=== PATIENT | female | born 1980 | race Caucasian/White ===

== ENCOUNTER 2020-02-07 10:00 | Emergency (ER) | payer MEDICAID, SELFPAY ==
--- NOTE | 2020-02-07 10:06 | W.ED.GENAD ---
Discharge Plan Disposition Patient Disposition: HOME Condition: Stable Discharge Details Clinical Impression: Right knee sprain Primary Care Provider: Raquel,Local ED Provider: Simran Wharton Home Meds and New Rx's Prescriptions: Continued buspirone 5 mg Tablet PO BID RF: 0 prazosin 1 mg Capsule 2 mg PO QHS RF: 0 sertraline 100 mg Tablet 100 mg PO DAILY RF: 0 propranolol 80 mg Capsule,Extended Release 24hr 80 mg PO DAILY RF: 0 Discharge Instructions Instructions: Knee Sprain (ED) Additional Instructions: Rest, ice, and elevate the affected area as much as possible. You can try using a cane to help with limiting weightbearing on your right leg. Alternate tylenol and motrin as needed and directed for pain. Follow-up with your primary care doctor in 1 week. Follow-up with orthopedics for further evaluation if your symptoms do not improve or worsen over the next few weeks. Return to the emergency department with any worsening or new concerning symptoms. Referrals: Scott Yañez MD [ [facility] STAFF PHYSICIAN] - Discharge Data Discharge Physician: Simran Wharton Medical Decision Making 1015 -- 39-year-old female with a history of right ACL repair approximately 10 years ago who presents for right knee pain after twisting her knee while walking her dog yesterday. Right anterior knee edema with tenderness of the entire knee and pain with range of motion and no ligamentous laxity or evidence of cellulitis. She is neurovascularly intact. We will give a dose of ibuprofen, and refer for right knee x-ray. 1130 -- X-ray reviewed and negative for acute findings. Marco A wrap placed. Patient declined crutches. She was advised on the importance of RICE. Patient given orthopedic follow-up information if symptoms persist or worsen. Usual and customary return precautions given prior to discharge. Medical Records Medical records reviewed: Yes I reviewed the patient's medical records. Imaging Data Radiologic Study: Radiologist's impression: XR KNEE RT 3V AP,LAT,JAMES CLINICAL HISTORY: R knee twisting inj, r/o acute fx/effusion. TECHNIQUE: 2D digital imaging was performed. COMPARISON: No exams were available for comparison FINDINGS: BONES: No acute fracture is present. No bony destructive lesion is seen. Findings of a prior ACL repair are noted. JOINTS: The knee is normally aligned. No joint effusion is seen. Degenerative changes of the knee are noted. SOFT TISSUE: Normal. IMPRESSION: No acute fracture or dislocation. HPI General Mode of arrival: wheelchair. Date/Time Provider Initiated Documentation: 02/07/20 10:06. Limitations to Documentation: no limitations. Information obtained by: patient. HPI Narrative: Patient is a 39-year-old female with a history of right ACL repair 10 years ago who presents with right knee pain after twisted her knee while walking her dog yesterday. She is now complaining of pain in the right anterior and posterior knee that is worse with weightbearing. Her last dose of ibuprofen was yesterday. She states she has Essure and a Mirena and denies known . She denies any hip or ankle pain. Related Data Home Medications Medication Instructions Recorded Confirmed buspirone mg PO BID 02/07/20 prazosin 2 mg PO QHS 02/07/20 02/07/20 propranolol 80 mg PO DAILY 02/07/20 02/07/20 sertraline 100 mg PO DAILY 02/07/20 02/07/20 Allergies Allergy/AdvReac Type Severity Reaction Status Date / Time trazodone Allergy Severe seizure Unverified 02/07/20 10:23 Review of Systems All systems reviewed & are unremarkable except as noted in HPI and below Constitutional Constitutional: Reports as per HPI, Denies chills and Denies fever(s) Eyes Eyes: Denies blurry vision ENT Ears, Nose, Mouth, and Throat: Denies dizziness, Denies sore throat and Denies throat swelling Cardiovascular Cardiovascular: Denies chest pain and Denies dyspnea Respiratory Respiratory: Denies cough and Denies dyspnea Gastrointestinal Gastrointestinal: Denies abdominal pain, Denies diarrhea and Denies vomiting Genitourinary Genitourinary: Denies hematuria and Denies dysuria Musculoskeletal Musculoskeletal: Denies back pain and Denies numbness Integumentary/Breasts Skin/Breast: Denies lesions and Denies rash Neurologic Neurologic: Denies dizziness, Denies localized weakness and Denies numbness Allergic/Immunologic Allergic/Immunologic: Denies throat swelling [facility] Medical History (Updated 02/07/20 @ 11:52 by Simran Wharton DO) Anxiety Depression Surgical History (Updated 02/07/20 @ 10:36 by Simran Wharton DO) Encounter for Essure implantation H/O exploratory laparotomy due to adhesions History of repair of ACL History of tonsillectomy Hx of cholecystectomy Social History Smoking/Tobacco Use Status: Current every day Tobacco Type: cigarettes Alcohol Intake: never Drug use: Occasionally Substance use type: marijuana Do you feel safe at home: Yes Exam Const General: cooperative, healthy appearing and no acute distress HENMT Head: normal to inspection Mouth: oral mucosae normal Eyes General: appearance normal, both eyes and all related structures Neck Neck: normal visual inspection Resp Effort & Inspection: normal respiratory effort and able to speak in complete sentences Cardio Rate: regular rate Skin General skin exam: no rashes or lesions noted Neuro General: patient alert, patient awake and patient oriented x3 Motor: muscle tone normal throughout Extrem Right lower extremity: knee Details: tenderness Location: of the patella, of the popliteal fossa, of the medial joint line and of the lateral joint line, swelling Location: of the infrapatellar area, abnormal ROM Details: pain with active ROM during and pain with passive ROM during and knee ligament exam normal Details: anterior drawer test normal, posterior drawer test normal, valgus stress test normal and varus stress test normal, lower leg Details: no edema and foot Details: vascular exam Details: dorsalis pedis pulse present and posterior tibial pulse present Knee images: 1. Mild edema. No erythema, crepitus, ecchymosis. Psych Appearance: grossly normal Affect: normal affect
[2020-02-07 10:08] VITALS: BP 158/101; PULSE 98; TEMP 36.3; O2SAT 97
[2020-02-07] MEDS: Ibuprofen 600 MG TAB PO (10:54)
--- NOTE | 2020-02-07 11:11 | DI.RAD_ITS ---
EXAM: XR KNEE RT 3V AP,LAT,JAMES CLINICAL HISTORY: R knee twisting inj, r/o acute fx/effusion. TECHNIQUE: 2D digital imaging was performed. COMPARISON: No exams were available for comparison FINDINGS: BONES: No acute fracture is present. No bony destructive lesion is seen. Findings of a prior ACL repa ir are noted. JOINTS: The knee is normally aligned. No joint effusion is seen. Degenerative changes of the knee are noted. SOFT TISSUE: Normal. IMPRESSION: No acute fracture or dislocation. DATA REPOSITORY: RADIATION DOSE DELIVERED:
== END 2020-02-07 12:20 | disposition home or self-care (01) ==
PROVIDERS: Emergency Provider Physician Assistant
DX: M25.461 Effusion, right knee (principal); S83.91XA Sprain of unspecified site of right knee, initial encounter; X50.9XXA Other and unspecified overexertion or strenuous movements or postures, initial encounter; Y93.K1 Activity, walking an animal
CPT/HCPCS: 73562; 81025; 99283; 99284